=== PATIENT | female | born 2000 | race Caucasian/White ===

== ENCOUNTER 2023-10-27 12:42 | Emergency (ER) | payer OTHER ==
[~2023-10-27] VITALS: Ht 160 cm; Wt 72.1 kg
[~2023-10-27 12:42] MED LIST: METH20TA PO
[2023-10-27 13:18] VITALS: BP 117/71; PULSE 77; RESP 16; TEMP 99; O2SAT 99
[2023-10-27 14:33] LABS: BASOPHILS % (AUTO) 0.6 % (0.0-2.0); EOSINOPHILS % (AUTO) 0.3 % (0.0-4.0); HEMATOCRIT 38.1 % (36-48); HEMOGLOBIN 13.6 g/dL (12.0-16.0); LYMPHOCYTES # (AUTO) 1.3 K/uL (2.5-16.5); LYMPHOCYTES % (AUTO) 18.7 % (20.5-51.1); MEAN CORPUSCULAR HEMOGLOBIN 35 pg (27-31); MEAN CORPUSCULAR HGB CONC 36 g/dL (33-37); MONOCYTES # (AUTO) 0.7 K/uL (0.8-1.0); NEUTROPHILS # (AUTO) 4.9 K/uL (1.8-7.7); NEUTROPHILS % (AUTO) 70.4 % (42.2-75.2); PLATELET COUNT (AUTO) 224 K/uL (140-450); RED BLOOD CELL COUNT(AUTO) 3.93 MIL/uL (4.20-5.40); RED CELL DISTRIBUTION WIDTH 12.2 % (11.6-13.7)
[2023-10-27 14:46] LABS: ALBUMIN 3.8 g/dL (3.4-5.0); ANION GAP 10.5 (8-16); CALCIUM 8.8 mg/dL (8.5-10.1); CREATININE 0.7 mg/dL (0.6-1.3); POTASSIUM 3.5 mmol/L (3.5-5.1); TOTAL BILIRUBIN 0.7 mg/dL (0.0-1.0)
[2023-10-27] MEDS ORDERED: FAMO-90 PO (16:00)
[2023-10-27] MEDS ORDERED: [UNRECOGNIZED DRUG - OTHER] PO (16:00)
[2023-10-27] MEDS ORDERED: DOXY1TCP PO (16:02)
== END 2023-10-27 16:11 | disposition home or self-care (01) ==
LOC: MED 12:42
DX: O23.41 Unspecified infection of urinary tract in pregnancy, first trimester (principal); O26.891 Other specified pregnancy related conditions, first trimester; Z3A.01 Less than 8 weeks gestation of pregnancy; Z79.899 Other long term (current) drug therapy
CPT/HCPCS: 36415; 76705; 76801; 80053; 81025; 83690; 84702; 85025; 86901; 99284